=== PATIENT | male | born 1985 | race Caucasian/White ===

== ENCOUNTER 2024-06-13 15:05 | Inpatient (IN) | payer MEDICAID ==
[~2024-06-13] VITALS: Ht 180.3 cm; Wt 129.6 kg
[2024-06-13] MEDS ORDERED: LORazepam 2 MG/ML VIAL ONE (15:12)
[2024-06-13] MEDS ORDERED: ADENOSINE 3 MG/ML 2 ML VIAL IVP ONE (15:13)
[2024-06-13] MEDS: ADENOSINE 3 MG/ML 2 ML VIAL IVP ONE ×2 (15:15→15:22)
[2024-06-13] MEDS: LORazepam 2 MG/ML VIAL IVP ONE (15:18)
[2024-06-13] MEDS ORDERED: SODIUM CHLORIDE 0.9% 100 ML ONE (15:20)
[2024-06-13] MEDS: ACETAMINOPHEN 1000 MG/ISO-OSM 100 ML IV ONE (15:20)
[2024-06-13] MEDS: SODIUM CHLORIDE 0.9% 1,000 ML IV ONE ×2 (15:20→15:45)
[2024-06-13] MEDS ORDERED: IOHEXOL 350 MG/ML 100 ML VIAL ONE (15:20)
[2024-06-13 15:29] LABS: APPEARANCE,URINE CLEAR (CLEAR); BILIRUBIN,URINE NEGATIVE (NEGATIVE); COLOR,URINE YELLOW (YELLOW); GLUCOSE, URINE (UA) NEGATIVE (NEGATIVE); KETONES,URINE NEGATIVE (NEGATIVE); LEUKOCYTE ESTERASE ,URINE NEGATIVE (NEGATIVE); NITRATE,URINE NEGATIVE (NEGATIVE); OCCULT BLOOD,URINE NEGATIVE (NEGATIVE); PROTEIN,URINE 30-70 mg/dL (NEGATIVE); SPECIFIC GRAVITIY, URINE 1.017 (1.003-1.030)
[2024-06-13 15:30] LABS: BASOPHILS % (AUTO) 0.2 % (0.0-2.0); EOSINOPHILS % (AUTO) 0.2 % (1.0-6.0); HEMATOCRIT 44.8 % (41-53); LYMPHOCYTES # (AUTO) 4.1 K/uL (1.0-4.8); LYMPHOCYTES % (AUTO) 38.6 % (22.0-44.0); MEAN CORPUSCULAR HEMOGLOBIN 31.8 pg (26.0-34.0); MEAN CORPUSCULAR HGB CONC 33.4 G/dL (31.0-37.0); MEAN CORPUSCULAR VOLUME 95 fL (80-100); MONOCYTES # (AUTO) 1.8 K/uL (0.1-1.0); MONOCYTES % (AUTO) 16.9 % (2.0-9.0); NEUTROPHILS # (AUTO) 4.7 K/uL (1.8-7.7); NEUTROPHILS % (AUTO) 44.1 % (40.0-70.0); PLATELET COUNT (AUTO) 159 K/uL (150-450); RED BLOOD CELL COUNT(AUTO) 4.71 MIL/uL (4.50-5.90); RED CELL DISTRIBUTION WIDTH 14.6 % (11.5-14.5); WHITE BLOOD COUNT (AUTO) 10.7 K/uL (4.5-11.0)
[2024-06-13] MEDS ORDERED: BISACODYL 10 MG RECTAL RECTAL SUPPOSITORY PR PRN (15:30)
[2024-06-13] MEDS ORDERED: ONDANSETRON HCL 4 MG/2 ML VIAL IVP PRN (15:30)
[2024-06-13] MEDS ORDERED: ACETAMINOPHEN 325 MG TABLET PO PRN (15:30)
[2024-06-13] MEDS ORDERED: LORazepam 2 MG/ML VIAL IVP PRN (15:30)
[2024-06-13] MEDS: DILTIAZEM HCL 5 MG/ML 5 ML VIAL IVP ONE ×2 (15:32→15:40)
[2024-06-13] MEDS: PROPOFOL 1000 MG/ISO-OSM 100 ML IV PRN (15:35)
[2024-06-13 15:37] LABS: ALCOHOL, URINE DRUG SCREEN NEGATIVE (NEGATIVE); AMPHET/METH SCREEN,URINE NEGATIVE (NEGATIVE); BARBITURATE SCREEN, URINE NEGATIVE (NEGATIVE); BENZODIAZEPINES SCREEN,URINE NEGATIVE (NEGATIVE); CANNABINOID SCREEN,URINE NEGATIVE (NEGATIVE); COCAINE SCREEN,URINE NEGATIVE (NEGATIVE); METHADONE SCREEN, URINE NEGATIVE (NEGATIVE); OPIATE SCREEN,URINE NEGATIVE (NEGATIVE); PHENCYCLIDINE SCREEN,URINE NEGATIVE (NEGATIVE)
[2024-06-13 15:40] VITALS: PULSE 138; RESP 18; O2SAT 98
[2024-06-13 15:40] LABS: ALCOHOL, BLOOD (SERUM) < 3 mg/dL (0-10)
[2024-06-13] MEDS: PANTOPRAZOLE SODIUM 40 MG/VIAL IVP SCH (15:42)
[2024-06-13] MEDS: PIPERACILLIN/TAZO 3.375 GM/D5W 50 ML IV ONE (15:42)
[2024-06-13 15:48] LABS: TROPONIN I-HIGH SENSITIVITY 18 ng/L (<76)
[2024-06-13 15:57] LABS: BACTERIA,URINE None Seen /HPF (None Seen); RBC,URINE 0-2 /HPF (0-2); SQUAMOUS EPITHELIAL CELL,UR Rare /LPF (None Seen); URINALYSIS COMMENT Rare Sperm seen.; WBC,URINE 0-2 /HPF (0-5)
[2024-06-13] MEDS ORDERED: HEPARIN SODIUM,PORCINE 5,000 UNITS/ML VIAL SQ SCH (16:00)
[2024-06-13 16:03] LABS: LACTIC ACID 11.5 mmol/L (0.4-2.0)
[2024-06-13 16:06] LABS: ALANINE AMINOTRANSFERASE 343 U/L (12-78); ALBUMIN 3.6 g/dL (3.4-5.0); ALKALINE PHOSPHATASE 139 U/L (46-116); ANION GAP 17 mmol/L (8-16); ASPARTATE AMINOTRANSFERASE 397 U/L (15-37); CALCIUM, TOTAL 8.1 mg/dL (8.8-10.5); CARBON DIOXIDE 22 mmol/L (22-29); CHLORIDE 91 mmol/L (98-107); CREATINE KINASE, TOTAL ONLY 394 U/L (39-308); CREATININE 1.32 mg/dL (0.60-1.30); GLOMERULAR FILTR. RATE CALC > 60 mL/min (>60); GLUCOSE,RANDOM 210 mg/dL (70-110); PHOSPHORUS 3.9 mg/dL (2.5-4.9); SODIUM SERUM 130 mmol/L (136-145); TOTAL PROTEIN, SERUM 9.3 g/dL (6.4-8.2); UREA NITROGEN, BLOOD 7 mg/dL (7-18)
[2024-06-13 16:07] LABS: POTASSIUM 2.7 mmol/L (3.5-5.1)
[2024-06-13] MEDS: LevETIRAcetam 1,000 MG in DEXTROSE 5%-WATER 100 ML IV ONE (16:10)
[2024-06-13] MEDS ORDERED: POTASSIUM CHL 10 MEQ/WATER 50 ML IV PRN (16:15)
[2024-06-13] MEDS ORDERED: HydrALAZINE HCL 20 MG/ML VIAL IVP PRN (16:15)
[2024-06-13] MEDS: MIDAZOLAM HCL 100 MG in SODIUM CHLORIDE 0.9% 180 ML IV PRN (16:15)
[2024-06-13] MEDS ORDERED: POTASSIUM CHLORIDE 20 MEQ ER TABLET PO PRN (16:15)
[2024-06-13] MEDS ORDERED: SODIUM CHLORIDE 0.9% 1,000 ML IV ONE (16:15)
[2024-06-13] MEDS ORDERED: NiCARDipine HCL 25 MG in SODIUM CHLORIDE 0.9% 240 ML IV PRN (16:15)
[2024-06-13 16:17] LABS: PROTHROMBIN TIME 11.6 SEC (9.4-11.6)
[2024-06-13] MEDS: POTASSIUM CHL 10 MEQ/WATER 50 ML IV SCH (16:25)
[2024-06-13] MEDS: DESMOPRESSIN ACETATE 40 MCG in SODIUM CHLORIDE 0.9% 50 ML IV ONE (16:30)
[2024-06-13] MEDS: AMIODARONE HCL 150 MG in DEXTROSE 5%-WATER 97 ML IV ONE (16:42)
[2024-06-13] MEDS: AMIODARONE HCL 360 MG in DEXTROSE 5%-WATER 242.8 ML IV ONE (16:42)
[2024-06-13] MEDS: AZITHROMYCIN 500 MG/NS 250 ML IV ONE (16:50)
[2024-06-13] MEDS: VANCOMYCIN 1.25 GM/WATER(PEG) 250 ML IV ONE (17:08)
[2024-06-13] MEDS: DILTIAZEM HCL 125 MG in DEXTROSE 5%-WATER 100 ML IV PRN (19:03)
[2024-06-13 19:35] VITALS: RESP 18; TEMP 103; O2SAT 98
[2024-06-13 19:49] VITALS: BP 159/75; PULSE 129
[2024-06-13] MEDS ORDERED: AMIODARONE HCL 540 MG in DEXTROSE 5%-WATER 239.2 ML IV ONE (21:30)
[2024-06-13] MEDS ORDERED: CHLORHEXIDINE GLUCONATE 2% TOWELETTE [2'S/6'S] TP SCH (22:00)
[2024-06-13] MEDS ORDERED: PIPERACILLIN/TAZO 3.375 GM/D5W 50 ML IV SCH (22:00)
[2024-06-14] MEDS ORDERED: LevETIRAcetam 500 MG in DEXTROSE 5%-WATER 100 ML IV SCH (04:00)
[2024-06-14] MEDS ORDERED: HEPARIN SODIUM,PORCINE 5,000 UNITS/ML VIAL SQ SCH (09:00)
[2024-06-14] MEDS ORDERED: ETOMIDATE 2 MG/ML 10 ML VIAL IV ONE (12:20)
[2024-06-14] MEDS ORDERED: AMIODARONE HCL 750 MG in DEXTROSE 5%-WATER 485 ML IV SCH (15:30)
== END 2024-06-14 12:21 | disposition short-term general hospital (02) | DRG 720 ==
LOC: EMS 15:05 → EDH 15:24
PROVIDERS: ADMIT Internal Medicine; ATTEND Internal Medicine
PROC: 0BH17EZ Insertion of Endotracheal Airway into Trachea, Via Natural or Artificial Opening (ICD-10-PCS; principal; 2024-06-13)
PROC: 5A1935Z Respiratory Ventilation, Less than 24 Consecutive Hours (ICD-10-PCS; 2024-06-13)
DX: A41.9 Sepsis, unspecified organism (principal); I61.8 Other nontraumatic intracerebral hemorrhage; J96.90 Respiratory failure, unspecified, unspecified whether with hypoxia or hypercapnia; J69.0 Pneumonitis due to inhalation of food and vomit; I16.1 Hypertensive emergency; E66.01 Morbid (severe) obesity due to excess calories; E87.1 Hypo-osmolality and hyponatremia; R56.9 Unspecified convulsions; E87.6 Hypokalemia; I10 Essential (primary) hypertension; F10.20 Alcohol dependence, uncomplicated; Z68.39 Body mass index [BMI] 39.0-39.9, adult
CPT/HCPCS: 70496; 70498; 71045; 80053; 80307; 81001; 82550; 82948; 83605; 83735; 84100; 84484; 85025; 85610; 85730; 86850; 86900; 86901; 87040; 93005; 93306; 94002; 99285; G0480; J0131; J0153; J0282; J0456; J0712; J2060; J2250; J2470; J2543; J2597; J2704; J3480; J3490; J7050; J7060; 36415-L1; 36415-TC; 70450; 70450-TC